=== PATIENT | male | born 2000 | race Caucasian/White ===

== ENCOUNTER 2023-05-10 17:46 | Emergency (ER) | payer MEDICAID ==
[~2023-05-10] VITALS: Ht 175.3 cm; Wt 62.0 kg
[2023-05-10 18:05] VITALS: TEMP 98.1; O2SAT 99
[2023-05-10 18:52] VITALS: BP 117/71; PULSE 59; RESP 17
[2023-05-10] MEDS: IBUPROFEN 400MG TABLET PO ONE (18:52)
[2023-05-10] MEDS ORDERED: HYDR-4001 MT ×2 (19:54→21:56)
[2023-05-10] MEDS ORDERED: TOPUD PO (19:54)
[2023-05-10] MEDS ORDERED: NAPR500T7 MT (19:54)
== END 2023-05-10 20:13 | disposition home or self-care (01) ==
LOC: EDSEX 17:46 → ER 17:46
DX: S42.002A Fracture of unspecified part of left clavicle, initial encounter for closed fracture (principal); V00.131A Fall from skateboard, initial encounter; Y93.89 Activity, other specified; Y92.89 Other specified places as the place of occurrence of the external cause; Y99.8 Other external cause status
CPT/HCPCS: 73000; 73030; 99284; A4565